=== PATIENT | female | born 2000 | race Caucasian/White ===

== ENCOUNTER 2020-09-22 17:00 | Outpatient (CLI) | payer BC, SELFPAY ==
--- NOTE | ~2020-09-22 | XR_ITS ---
EXAMINATION:[id number] DATE: 09/22/2020 17:48 INDICATION: Benign head tremor TECHNIQUE: AP, lateral and odontoid views of the cervical spine are provided. COMPARISON: None FINDINGS: Alignment is normal. Odontoid is intact. Normal atlantoaxial interval. Vertebral body heights are no rmal. Disc spaces are normal. Prevertebral soft tissues are normal. Visualized apices of the lungs a re clear. IMPRESSION: 1. . Negative cervical spine radiographs. Reviewed, dictated and finalized at location H. TABLE II [employer]
[2020-09-22 18:07] LABS: Basophils Percent Auto 0.4 % (0.2-1.2); Eosinophils Absolute Auto 0.3 K/mm3 (0-0.3); Eosinophils Percent Auto 2.7 % (0-4.4); Hematocrit 39.2 % (37.0-47.0); Hemoglobin 13.1 g/dL (12.0-15.0); Immature Granulocyte Absolute 0.04 K/mm3 (0.00-0.031); Immature Granulocyte Percent A 0.4 % (0-0.5); Lymphocytes Absolute Auto 3.27 K/mm3 (0.9-3.2); Lymphocytes Percent Auto 31.2 % (18.3-44.2); Mean Corpuscular HGB Conc 33.4 g/dl (32-36); Mean Corpuscular Hemoglobin 30.7 pg (26-34); Mean Corpuscular Volume 91.8 fl (80-100); Mean Platelet Volume 9.3 fl (7.4-10.4); Monocytes Percent Auto 9.6 % (2.6-8.5); Neutrophils Absolute Auto 5.9 K/mm3 (1.3-6.7); Neutrophils Percent Auto 55.7 % (45.5-73.1); Platelet Count Result 398 k/mm3 (150-375); Red Blood Count 4.27 M/mm3 (4.2-5.4); Red Cell Distribution Width 12.6 % (11.5-14.5); White Blood Count 10.5 K/mm3 (4.5-10.0)
[2020-09-22 18:20] LABS: Alanine Aminotransferase 18 U/L (4-35); Albumin Level 4.4 g/dL (3.5-5.1); Alkaline Phosphatase 68 U/L (38-126); Anion Gap 7 mmol/L (8-16); Aspartate Amino Transferase 25 U/L (14-36); Bilirubin,Total 0.2 mg/dL (0.2-1.3); Blood Urea Nitrogen 14 mg/dL (7-17); Calcium 9.6 mg/dL (8.4-10.2); Carbon Dioxide 29 mmol/L (22-30); Chloride 102 mmol/L (98-107); Estimated Glomerular Filt Rate > 60; Glucose 87 mg/dL (65-105); Sodium 138 mmol/L (137-145)
[2020-09-22 19:07] LABS: Iron 57 ug/dL (37-170)
[2020-09-22 19:18] LABS: Percent Iron Saturation 13 % (20-50)
[2020-09-22 19:28] LABS: Free T4 Free Thyroxine 1.07 ng/mL (0.78-2.19)
== END 2020-09-22 17:01 | disposition home or self-care (01) ==
LOC: ANHLAB 17:05
PROVIDERS: PCP Physician Assistant; Visit Provider Physician Assistant
DX: G25.0 Essential tremor (principal); R51.9 Headache, unspecified; F51.01 Primary insomnia; Z13.0 Encounter for screening for diseases of the blood and blood-forming organs and certain disorders involving the immune mechanism; G89.29 Other chronic pain
CPT/HCPCS: 36415; 72040; 80053; 82607; 82728; 83540; 83550; 84439; 84443; 85025